=== PATIENT | male | born 1990 | race Caucasian/White ===

== ENCOUNTER → 2023-04-12 12:45 | Outpatient (CLI) | payer OTHER, SELFPAY ==
--- NOTE | 2023-04-12 | DI.RAD.S_ITS ---
PROCEDURE: FL SHOULDER INJECTION MR/CT LT INDICATIONS: SHOULDER PAIN COMPARISON: None. TECHNIQUE: The indications, alternatives, benefits, risks, and complications of the procedure were explained to the patient. Written informed consent was obtained and placed in the chart. The shoulder was examined fluoroscopically and a site for needle placement chosen for entry into the glenohumeral joint from an anterior approach. The skin was prepped and draped in a sterile fashion, and 1% lidocaine infiltrated from skin down to joint capsule. A spinal needle was inserted into the glenohumeral joint, and a small amount of iodinated contrast media injected to confirm intra-articular placement of the needle tip. This was followed by approximately 12 mL dilute solution of a gadolinium containing MR contrast agent. The needle was removed and a dressing was applied. The patient was given postprocedural instructions and sent to the MR suite for MR imaging. FINDINGS: A single fluoroscopic spot image demonstrates intra-articular location of injected iodinated contrast. IMPRESSION: Successful fluoroscopically guided administration of dilute Gadolinium solution into the left shoulder joint for MR arthrogram. Dictated by: Nacho Seaman M.D. on 04/12/2023 at 14:32 Approved by: Nacho Seaman M.D. on 04/12/2023 at 14:33
--- NOTE | 2023-04-12 | DI.MRI.S_ITS ---
PROCEDURE: MR SHOULDER LT W CON INDICATIONS: SHOULDER PAIN LEFT TECHNIQUE: After the administration of 12 mL of dilute intra-articular Gadolinium contrast, oblique coronal T1 and T2 spin echo with fat saturation, oblique sagittal T1 spin echo with and without fat saturation, oblique sagittal T2 fast spin echo with fat saturation, axial T1 spin echo with fat saturation through the shoulder. COMPARISON: [facility], , [place] SHOULDER INJECTION MR/CT LT, 04/12/2023, 13:17. FINDINGS: Image quality: Excellent. Rotator cuff: Mild supraspinatus tendinosis. The infraspinatus, teres minor, and subscapularis tendons are intact. The rotator cuff musculature is well-developed. Subtle [id number] signal is seen within the teres minor muscle that could represent very mild or early denervation changes. No mass is seen along the axillary nerve. Bones and bursae: No acute trabecular bone injury or fracture. No focal glenohumeral cartilage defect. No Hill-Sachs lesion. Mild to moderate degenerative changes are seen at the acromioclavicular joint with mild subchondral edema. There is trace [id number] contrast material in the subacromial/subdeltoid bursa that is most likely related to extravasation during the arthrogram injection. No intra-articular filling defect is seen within the glenohumeral joint space. Capsule and soft tissues: Partial nondisplaced tearing of the posterosuperior labrum with focal uptake of glenohumeral contrast material. The proximal biceps long head tendon is intact. Glenohumeral ligaments are intact IMPRESSION: 1. Focal nondisplaced partial tearing of the posterosuperior labrum. 2. Mild supraspinatus tendinosis. No significant rotator cuff tendon tear. 3. Subtle increased T2-weighted signal within the teres minor muscle may indicate very mild or early denervation changes. No mass is seen along the course of the axillary nerve. 4. Styp-[id number]-[id number] acromioclavicular joint osteoarthrosis. Approved by: Juve Landis M.D. on 04/12/2023 at 17:59
--- NOTE | 2023-04-12 | DI.MRI.S_ITS ---
PROCEDURE: MR ANKLE RT WO CON INDICATIONS: ANKLE PAIN TECHNIQUE: Noncontrast sagittal T1 spin echo and T2 fast spin echo with fat saturation, axial proton density fast spin echo and T2 fast spin echo with fat saturation, coronal T1 spin echo and T2 fast spin echo with fat saturation through the ankle/hindfoot. COMPARISON: None. FINDINGS: Image quality: Excellent. Bones and joints: No bone marrow contusions or fractures. No hindfoot coalitions. No osteochondral injuries of the talar dome. Medial structures: The deep and superficial layers of the deltoid ligament appear intact. The spring ligament components are intact. Mild distal posterior tibialis tenosynovitis. Fluid surrounding the flexor hallucis longus tendon at the plantar aspect of the foot adjacent to the master knot of Mike's nonspecific but can be seen in setting of intersection syndrome. No significant tendon tearing. The posterior tibial neurovascular bundle appears normal within the tarsal tunnel, without extrinsic mass effect. Lateral structures: Remote prior low-grade sprain of the anterior talofibular ligament and the calcaneofibular ligament. The posterior talofibular ligament is intact. The anterior and posterior tibiofibular ligaments appear intact. Mild peroneus brevis and longus tendinosis and tenosynovitis. The sinus tarsi demonstrates normal fatty signal. Anterior structures: The tibialis anterior, extensor hallucis longus, and extensor digitorum longus tendons appear intact. The dorsal talonavicular ligament appears intact. Posterior and plantar structures: Mild Achilles tendinosis. There is thickening and irregularity of the proximal plantar fascia with mild surrounding soft tissue edema. Small nonedematous plantar calcaneal enthesophyte is present. No abductor digiti quinti muscle atrophy to suggest King neuropathy. IMPRESSION: 1. Suspected low-grade partial tearing of the proximal plantar fascia superimposed on moderate chronic fasciitis. Mild surrounding soft tissue edema. 2. Mild Achilles tendinosis. 3. Mild peroneus brevis and longus tendinosis and tenosynovitis. 4. Remote prior low-grade sprains of the anterior talofibular ligament and calcaneofibular ligament. 5. Mild distal posterior tibialis tenosynovitis. 6. Fluid along the flexor digitorum longus and flexor hallucis longus tendons adjacent to the master knot of Mike is nonspecific but may be related to intersection syndrome. Approved by: Juve Landis M.D. on 04/12/2023 at 18:04
== END ==
DX: M25.571 Pain in right ankle and joints of right foot (principal); M76.821 Posterior tibial tendinitis, right leg; S43.492S Other sprain of left shoulder joint, sequela; S43.432A Superior glenoid labrum lesion of left shoulder, initial encounter; M19.012 Primary osteoarthritis, left shoulder; R60.0 Localized edema; M65.871 Other synovitis and tenosynovitis, right ankle and foot; S93.491A Sprain of other ligament of right ankle, initial encounter
CPT/HCPCS: 23350; 73222; 73721